=== PATIENT | female | born 1955 | race Caucasian/White ===

== ENCOUNTER → 2017-02-15 16:58 | Outpatient (CLI) | payer MEDICARE | END | disposition home or self-care (01) | LOC: D.LABREF 16:58 | DX: M25.562 Pain in left knee (principal); Z11.8 Encounter for screening for other infectious and parasitic diseases ==

== ENCOUNTER 2017-02-28 10:00 | Inpatient (IN) | payer MEDICARE ==
[~2017-02-28 10:00] MED LIST: CELEXA20 MG PO; COZAAR100 MG PO; CYCLOBENZAPRINE10 MG PO; GLUCOPHAGE500 MG PO; HYDROCODONE-APA1 TAB PO; KLONOPIN1 MG PO; PHENERGAN6.25 MG/5 PO; SYNTHROID75 MCG PO; ZOCOR20 MG PO
[2017-02-28 12:00] LABS: BASOPHILS 0.1 % (0-2); EOSINOPHILS 0.5 % (0-7); HEMATOCRIT 41.4 % (36.0-48.0); HEMOGLOBIN 14.2 g/dL (12-16); IMMATURE GRANULOCYTES 0.3 % (0-5); LYMPHOCYTES 27.2 % (15-50); MCH 29.4 pg (26.0-34.0); MCHC 34.3 g/dL (31.0-37.0); MCV 85.7 fL (80.0-100.0); MEAN PLATELET VOLUME 10.4 fL (7.4-10.4); MONOCYTES 5.1 % (2-11); NEUTROPHILS 66.8 % (40-80); PLATELET COUNT 270 10x3/uL (130-400); RBC 4.83 10x6/uL (4.00-5.40); WBC 9.2 10x3/uL (4.8-10.8)
[2017-02-28 12:09] LABS: INR 0.97 (0.85-1.17); PROTIME 12.7 SECONDS (11.6-15.0)
[2017-02-28 12:14] LABS: ANION GAP 14.4 mmol/L (8-16); CALCIUM 9.1 mg/dL (8.5-10.1); CARBON DIOXIDE 27.6 mmol/L (21.0-32.0); CREATININE - SERUM 0.9 mg/dL (0.6-1.3)
[2017-02-28 12:38] LABS: APPEARANCE CLOUDY (CLEAR); BILIRUBIN NEGATIVE (NEGATIVE); COLOR YELLOW (YELLOW); GLUCOSE 50 mg/dL (NEGATIVE); KETONE NEGATIVE (NEGATIVE); NITRITE NEGATIVE (NEGATIVE); PROTEIN NEGATIVE (NEGATIVE); SPECIFIC GRAVITY 1.025 (1.005-1.020); UROBILINOGEN NORMAL (NORMAL)
[2017-02-28 12:39] LABS: BACTERIA MANY /hpf (NONE SEEN); MUCUS <1+ /lpf (NONE SEEN); RED CELLS - URINE 0-5 /hpf (0-5); WHITE CELLS - URINE OCC /hpf (0-5)
[2017-02-28 12:40] LABS: AMORPHOUS SEDIMENT <1+ /lpf (NONE SEEN)
--- NOTE | 2017-03-05 00:40 | NUR ---
NORCAN 0.4MG IVP GIVEN TO IV SITE RT BREAST. REMAINS SEDATED.O2 ON 15 L/M PER OXYMIZER SAT INCREASED TO 97% HR =113.
[2017-03-05] MEDS ORDERED: BAYER CHEWABLE81 MG PO (10:48)
[2017-03-05 11:02] VITALS: BP 143/75; BMI 33.1
[2017-03-05 17:22] VITALS: BP 102/50
[2017-03-05 17:43] VITALS: BP 102/50; BMI 33.0
--- NOTE | 2017-03-05 17:50 | NUR ---
PT RECIEVED FROM RR VIA BED NO DISTRESS NOTED AROUSES TO VERBAL STIMULI. SURGICAL DRESSING IN PLACE TO LEFT KNEE REVISION.
--- NOTE | 2017-03-05 19:17 | NUR ---
PT IS SITTING UP IN BED FINISHING HER TURKEY SANDWICH, STATED NO PAIN AT THIS TIME BUT DID NEED TO USE BED CARREON, ASSISTED PT ON TO BED CARREON WITH NO DIFFICULTY. PT BED IN LOW POSITION, CALL LIGHT IN REACH NO SIGNS OF DISTRESS WILL CONTINUE WITH PLAN OF CARE
[2017-03-05 22:27] VITALS: BP 115/69
--- NOTE | 2017-03-05 23:30 | NUR ---
CALLED TO ROOM BY RT SAEED BAKER PT HARD TO AROUSE UNABLE TO GET PT AROUSED BY STERNAL RUB. O2 SAT=75% B/P=84/50. RESPIRATIONS LABORED. HOB UP PLACED ON 15L OXYMIZER. NOTIFIED CRYSTAL FROM ICU TO COME EVALUATE PATIENT.
--- NOTE | 2017-03-06 00:27 | NUR ---
CAME INTO ROOM TO GIVE PT ANTIBIOTIC, PT WAS SLEEPING DEEPLY, BP READ 88/52, O2 AT 54 UNABLE TO AROUSE PT, CALLED NADIR W/ RESP AND ASKED FOR ASSISTANCE. NADIR TRIED TO WAKE PT AND RICKY CALLED MISSY IN ICU. PT WAS STILL UNRESPONSIVE. DANNI, CHARGE NURSE ADMIN PIOTR
--- NOTE | 2017-03-06 00:45 | NUR ---
ABG'S DRAWN PER SAMUEL RT TECH. PT NOW AROUSES TO NAME ONLY ATTEMPTS MADE 4 TO SITE DRAKE MOSELEY UNABLE TO OBTAIN.
--- NOTE | 2017-03-06 00:55 | NUR ---
PT NOW STARTING TO OPEN EYES TO NAME ANSWERS WORKPLACE QUESTION (DYANA LOVE) KNOWS YEAR OF 1954.
--- NOTE | 2017-03-06 01:00 | NUR ---
B/P=102/43 PO=821 O2 SAT =100% ON 4L/M PER OXYMIZER. MORE AWAKE AND FOLLOWING COMMANDS.WILL TRY TO COUGH TO COMMAND.
--- NOTE | 2017-03-06 01:10 | NUR ---
B/P=100/55 ET=112. RR=24.UNABLE TO OBTAIN SECOND IV SITE.
[2017-03-06 04:00] VITALS: BP 129/58
[2017-03-06 06:14] LABS: MCH 28.9 pg (26.0-34.0); MCHC 32.4 g/dL (31.0-37.0); MCV 89.2 fL (80.0-100.0); MEAN PLATELET VOLUME 10.6 fL (7.4-10.4); RBC 4.15 10x6/uL (4.00-5.40); RDW 13.3 % (11.5-14.5); WBC 9.7 10x3/uL (4.8-10.8)
--- NOTE | 2017-03-06 07:45 | NUR ---
PT ASSESSMENT COMPLETE AROUSES TO VERBAL STIMULI BUT QUICKLY BACK TO SLEEP O2 AT 6 LPM OXYMIZER. LTLSC NOTED DRESSING CDI WILL MONITOR.
[2017-03-06 08:34] VITALS: BP 146/58
--- NOTE | 2017-03-06 11:30 | NUR ---
PT SITTING UP IN CHAIR AT BEDSIDE PER THERAPY STAFF. CALL LIGHT INREACH FAMILY IN ROOM
[2017-03-06 11:45] VITALS: BP 145/52
--- NOTE | 2017-03-06 16:00 | NUR ---
PT AMBULATED IN [place] WITH THERAPY. SPOUSE AT SIDE
[2017-03-06 16:07] VITALS: BP 125/52
--- NOTE | 2017-03-06 16:17 | NUR ---
Patient Name: TROY MOREIRA Admission Status: Elective Accout number: [id number] Admission Date: 03-05-2017 : 1955 Admission Diagnosis: Attending: EJ CLARK Current LOS: 1 Anticipated DC Date: Planned Disposition: Home Primary Insurance: MEDICARE A & B Discharge Planning Comments: CM met with patient and ( Manan ) to assess discharge planning needs. Patient states that she lives independently she has 6 stairs to enter in her home. She has a bedside commode & walker. Patient would like to do her PT in [place]. CM will set this up prior to discharge. CM will continue to follow and assist with discharge planning needs. PCP: [facility] () [phone] Enterprise Account Executive: Zaria Sommers * Is the patient Alert and Oriented? Yes 0 * How many steps to enter\exit or inside your home? 6 0 * PCP [facility] 0 * Pharmacy [facility] 0 * Preadmission Environment Home with Family 0 * ADLs Independent 0 * Equipment Bedside Commode Walker 0 * List name and contact numbers for known caregivers / representatives who currently or will assist patient after discharge: Manan () [phone] * Community resources currently utilized None 0 * Additional services required to return to the preadmission environment? Yes 0 * Can the patient safely return to the preadmission environment? Yes 0 * Has this patient been hospitalized within the prior 30 days at any hospital? No 0 Grand Total: 0
--- NOTE | 2017-03-06 18:30 | NUR ---
PT ON ROOM AIR AT THIS TIME TOLERATING WELL SAT 95%
--- NOTE | 2017-03-06 19:46 | NUR ---
PT IS SITTING IN BED WITH TELEVISION ON, CHECKED PT O2, PT IS STATING AT 91 ON RA. ASSISTED PT WITH BED CARREON, PT IS ABLE TO PULL SELF UPAND TURN FROM SIIDE TO SIDE TO ASSIST. BED IN LOW POSITION, CLL LIGHT IN REACH. NO SIGNS OF DISTRESS AT THIS TIME
[2017-03-06 20:00] VITALS: BP 129/53
[2017-03-07] VITALS: BP 112/40
--- NOTE | 2017-03-07 02:00 | NUR ---
PT IN BED WITH NO DISTRESS. RESPIRATIONS EVEN AND UNLABORED. SIDE RAILS X 2. BED IS LOW. CALL LIGHT IN REACH.
[2017-03-07 05:55] LABS: HEMATOCRIT 29.9 % (36.0-48.0); MCHC 33.4 g/dL (31.0-37.0); MEAN PLATELET VOLUME 10.7 fL (7.4-10.4); RBC 3.45 10x6/uL (4.00-5.40); RDW 13.2 % (11.5-14.5); WBC 11.6 10x3/uL (4.8-10.8)
[2017-03-07 06:09] LABS: MCV 86.7 fL (80.0-100.0)
--- NOTE | 2017-03-07 07:16 | NUR ---
AWAKE AND ALERT WITH RESPIRATIONS EVEN AND NON LABORED. COMPLAINTS OF PAIN AT THIS TIME. BED ALARM AND SCD'S ON. CALL LIGHT IN REACH. WILL CONTINUE WITH PLAN OF CARE. SRX2 WITH BED IN LOWEST POSITION AND WHEELS LOCKED.
--- NOTE | 2017-03-07 07:46 | NUR ---
PRN TORADOL ADMINISTERED AT THIS TIME FOR PAIN 03/13.
[2017-03-07 07:53] VITALS: BP 100/52
--- NOTE | 2017-03-07 08:49 | NUR ---
SCHEDULED MEDICATIONS ADMINISTERED AT THIS TIME WELL PRN NORCO. DENIES NEEDS AT THIS TIME. CALL LIGHT IN REACH, WILL CONTINUE WITH PLAN OF CARE.
--- NOTE | 2017-03-07 10:42 | NUR ---
LEFT SUBCLAVIAN CENTRAL LINE DRESSING CHANGED USING STERILE TECHNIQUE PER PROTOCOL.
[2017-03-07 12:00] VITALS: BP 118/91
--- NOTE | 2017-03-07 12:53 | NUR ---
PRN NORCO ADMINISTERED AT THIS TIME FOR PAIN. PT REMAINS UP IN CHAIR.
--- NOTE | 2017-03-07 14:47 | NUR ---
IN BED SLEEPING AT THIS TIME. CALL LIGHT IN REACH AND BED ALARM ON.
[2017-03-07 16:35] VITALS: BP 141/71
--- NOTE | 2017-03-07 18:56 | OP ---
PATIENT NAME: TROY MOREIRA MEDICAL RECORD: [id number] :57 LOCATION:[facility] ADMISSION DATE:03/05/17 SURGEON: EJ CLARK MD DATE OF OPERATION: 03/05/2017 PREOPERATIVE DIAGNOSIS: Painful left total knee. POSTOPERATIVE DIAGNOSIS: Painful left total knee. PROCEDURE: Revision of total knee, all components. SURGEON: Ej Clark MD ANESTHESIA: General. INTRAOPERATIVE COMPLICATIONS: None. SUMMARY OF PATHOLOGIC FINDINGS: The patient has a very tight knee in flexion, which could be part of the patient's reason for pain with slight varus deformity seen on preoperative radiographs. IMPLANTS USED: SoftArt triathlon total stabilizing system, size 4 femoral component with distal femoral augments of 10 and 10 medially and laterally. No offset with 150 mm press-fit stem size 14 in the femur, size 4 tibial baseplate with 4 offset at 12 o'clock with 100 mm stem, size 10. An 11-mm polyethylene insert. OPERATIVE SUMMARY IN DETAIL: After obtaining the appropriate preoperative orthopedic surgery consent as well as anesthetic consultation, evaluation and clearance, the patient was brought to the operating room and placed on the operating table in supine position. After general laryngeal mask was administered, tourniquet was placed about the proximal aspect of left lower extremity. Left lower extremity was then prepped and draped in a routine sterile fashion. Leg was elevated, exsanguinated, tourniquet inflated to 350 mmHg. Previously utilized incision was taken down again for paramedian arthrotomy. The previously placed total knee arthroplasty was exposed. Polyethylene was removed and then the femur was removed using flexible osteotomes. Good adherence was noted. Minimal bone loss was encountered. The tibia likewise was removed with a combination of flexible osteotomes as well as a saw. Having completed this, irrigation was then followed by reaming of the femur. Cleanup cuts on the distal femur were then followed by measured chamfer cuts. The trial corresponding to the above was put into place. Next, intramedullary reaming of the tibia was then followed by cleanup cut on the tibia and after the appropriate positioning of the tibial baseplate that is 4 degree offset set directly at 12 o'clock. The proximal tibia final preparations were finished followed by placement of the trial prosthesis along with the 11-mm trial spacer. The knee was stable and had a good range of motion in all planes. The trials were removed and irrigation was carried out while the final components were removed from the back table. Final components were cemented into place. All excess cement was removed. After the cement was allowed to harden, the knee was taken through range of motion, good patellar tracking was noted. Paramedian arthrotomy was closed with #2 Ethibond followed by #1 Vicryl, 2-0 Vicryl and skin satya. Sterile dressings were applied. The patient was awakened, taken to recovery room in stable condition. All final needle and sponge counts were correct. OPERATIVE REPORT [id number] TROY MOREIRA TRANSINT:[id number] Voice Confirmation ID: [id number] DOCUMENT ID: [id number] AMBER HEADLEY, EJ SMALLS at 1856 CC: [id number] DICTATION DATE: 03/05/17 1650 OUTREACH MANAGER: 03/05/17 2220 ADM IN [place] [id number] [place] [address]
[2017-03-07 20:00] VITALS: BP 161/72
[2017-03-08 04:00] VITALS: BP 158/77
[2017-03-08 07:03] LABS: HEMOGLOBIN 9.8 g/dL (12-16)
--- NOTE | 2017-03-08 07:12 | NUR ---
AWAKE AND ALERT. BED ALARM ON AND IN WORKING ORDER. SCD'S OFF PER PT. OXYGEN ON 2L VIA NC. OXYGEN TURNED OFF TO SEE RESTING OXYGEN SATURATION WHICH WAS 77%. PLACED ON 2L VIA NC AND SATURATIONS TANYA TO 94%.
[2017-03-08 08:14] VITALS: BP 113/95
--- NOTE | 2017-03-08 09:00 | NUR ---
SCHEDULED MEDICATIONS ADMINISTERED AT THIS TIME WELL PRN TORADOL FOR PAIN. TAKEN WITHOUT DIFFICULTY. DENIES NEEDS AT THIS TIME. WILL CONTINUE WITH PLAN OF CARE.
--- NOTE | 2017-03-08 10:00 | NUR ---
OXYGEN SATURATION AFTER AMBULATION WITH THERAPY 91% ON 2L VIA NC.
--- NOTE | 2017-03-08 11:58 | NUR ---
REMAINS UP IN CHAIR. PRN NORCO ADMINISTERED FOR PAIN 10/11. RIGO MAT ALARM ON AND IN USE. CALL LIGHT IN REACH, WILL CONTIUE WITH PLAN OF CARE.
[2017-03-08 12:45] VITALS: BP 128/70
[2017-03-08 16:25] VITALS: BP 134/64
[2017-03-08 20:00] VITALS: BP 154/81
[2017-03-09] VITALS: BP 130/74
[2017-03-09 04:00] VITALS: BP 162/67
--- NOTE | 2017-03-09 07:20 | NUR ---
AWAKE AND ALERT. OXYGEN ON 2L VIA NC. RESPIRATIONS EVEN AND NON LABORED. ASSISTED PT TO AND FROM BEDSIDE COMMODE. BED ALARM ON AND CALL LIGHT IN REACH. WILL CONTINUE WITH PLAN OF CARE.
[2017-03-09 08:07] VITALS: BP 174/71
--- NOTE | 2017-03-09 09:31 | NUR ---
PRN NORCO ADMINISTERED FOR PAIN AT THIS TIME. UP TO BEDSIDE COMMODE AND RECEIVING BATH BY MJ UGALDE.
[2017-03-09 11:55] VITALS: BP 156/68
--- NOTE | 2017-03-09 12:24 | NUR ---
OXYGEN SATURATION 94% ON ROOM AIR AT REST. ASSISTED PT UP TO BEDSIDE COMMODE AND OXYGEN SATURATION 92% WITH EXERTION ON ROOM AIR. NO COMPLAINTS OF SHORTNESS OF BREATH.
[2017-03-09 16:00] VITALS: BP 150/67
--- NOTE | 2017-03-09 19:15 | NUR ---
RECEIVED CARE FROM DAY NURSE. PT IN BED WITH CALL LIGHT AT SIDE. REPORTS NO NEEDS. LEFT TLSC SL. BSC AND WALKER AT SIDE.
[2017-03-09 20:00] VITALS: BP 104/63
--- NOTE | 2017-03-09 23:40 | NUR ---
ASSESSED, PT IS AWAKE AND EATING A SNACK. SHE REQUESTED MILK AND RECEIVED IT WANTED, THE CPM IS AT THE BEDSIDE. THE BED IS LOW, RAILS ARE UP AND THE CALL LIGHT IS AT HAND.
[2017-03-10] VITALS: BP 149/76
--- NOTE | 2017-03-10 01:19 | NUR ---
PT RESTING QUITLY WITH EYES CLOSED. RESP EVEN AND UNLABORED. CALL LIGHT AT SIDE. WILL CONTINUE TO MONITOR.
[2017-03-10 04:00] VITALS: BP 156/66
--- NOTE | 2017-03-10 07:05 | NUR ---
PT REC'D FROM [facility]. RESTING IN BED WATCHING TV. AAOX4. NO COMPLAINTS OF PAIN, BUT PT IS GRIMACING. STATES SHE IS "MORE SORE THAN ANYTHING." TOLD HER I WOULD GO AHEAD AND GIVE HER A PAIN PILL WITH HER MORNING MEDS. DRESSING TO L KNEE CDI. LUNG SOUNDS CLEAR AND EQUAL BILAT. REGULAR HEART RATE AND RHYTHM. BOWEL SOUNDS ACTIVE X4 QUADS. BED LOW, CALL LIGHT IN REACH, DENIES NEEDS. CPOC.
[2017-03-10 08:07] VITALS: BP 168/72
[2017-03-10] MEDS ORDERED: ELIQUIS2.5 MG PO ×2 (08:48→10:10)
[2017-03-10] MEDS ORDERED: HYDROCODONE-APA1 TAB PO (08:49)
--- NOTE | 2017-03-10 08:55 | NUR ---
MORNING MEDS PASSED AT THIS TIME. PRN PAIN MEDICATION ADMINISTERED PER PT COMPLAINTS OF 4/10 L KNEE PAIN. BED LOW, CALL LIGHT IN REACH, DENIES NEEDS. CPOC.
[2017-03-10] MEDS ORDERED: LEVAQUIN750 MG PO (10:08)
--- NOTE | 2017-03-10 10:12 | NUR ---
ELIQUIS CALLED TO [facility]. SPOKE WITH AMY/PHARMACIST. LEVAQUIN CALLED TO [facility] [place]. SPOKE WITH GALILEA/PHARMACIST. NOTIFIED PT'S SPOUSE TO [facility] LEVAQUIN AT [place] AND ELIQUIS AT [facility] WITH ELIQUIS FREE TRIAL CARD PROVIDED.
--- NOTE | 2017-03-10 10:50 | NUR ---
PATIENT FOR DISCHARGE TO HOME TODAY. SHE DENIES ANY ADDITIONAL NEEDS. SHE HAS BEEN SEARCHING FOR A SHOWER CHAIR. KNOWS MEDICARE WILL NOT PAY FOR SHOWER CHAIR. SHE WILL F/U WITH [facility]. PATIENT HAS AN ORDER FOR OUTPATIENT PHYSICAL THERAPY. CM ADVISED HER OF PROVIDERS FOR OUTPATIENT PHYSICAL THERAPY IN [place] PER THE INTERNET: [place] [facility], [facility] AND [facility]. THE PATIENT SELECTED [facility]. CM TELEPHONED AND PROVIDER IS NOT AVAILABLE ON THE WEEKEND. ADVISED WEEKDAY CM MUST FOLLOW-UP ON SUNDAY TO ARRANGE. PATIENT UNDERSTANDS.
--- NOTE | 2017-03-10 13:06 | NUR ---
PATIENT DISCHARGING AT THIS TIME. TAKEN DOWN TO PRIVATE VEHICLE WITH PERSONAL BELONGINGS VIA WC BY PHILIP KRUSE.
--- NOTE | 2017-03-10 13:20 | NUR ---
DISCHARGE INSTRUCTIONS DISCUSSED AT THIS TIME. NO QUESTIONS OR CONCERNS VOICED. L SC DC'D WITH TIP INTACT. APPROXIMATLY 15CM. PRESSURE APPLIED FOR 5 MINUTES AND THEN DRESSING APPLIED. DRESSING TO L KNEE CHANGED PER ORDERS. ESCORTED OUT VIA WC.
--- NOTE | 2017-03-12 09:37 | NUR ---
referral sent to [facility] [place] for the patient to do outpatient PT. They will call the patient with an appointment time for her therapy.
--- NOTE | 2017-03-19 11:43 | CN ---
PATIENT NAME:TROY MOREIRA MEDICAL RECORD: [id number] : 57 LOCATION:[facility] ADMIT DATE: 03/05/17 ACCOUNT: [id number] CONSULTING PHYSICIAN: KENYA KHAN MD REFERRING PHYSICIAN: EJ CLARK MD DATE OF CONSULTATION: CONSULT REQUESTING PHYSICIAN: Ej Clark MD REASON FOR CONSULTATION: Hypoxia, pneumonia. HISTORY OF PRESENT ILLNESS: Ms. Moreira is a 62-year-old female who underwent left knee revision surgery. Since then, the patient required oxygen. Chest radiograph was done, which showed infiltrate right upper lobe. She has a cough without much sputum production. She had a fever 2 days ago. REVIEW OF SYSTEMS: Mainly in the history of present illness. PAST MEDICAL HISTORY: 1. Obstructive sleep apnea. The patient is not using a CPAP machine. 2. Diabetes mellitus. 3. History of hepatitis. 4. Hypothyroidism. 5. Anxiety, depression. 6. Peptic ulcer disease. PAST SURGICAL HISTORY: 1. She has Whit fundoplication. 2. She has repeat left knee surgery. 3. She has uvulopharyngoplasty. 4. Nose surgery. ALLERGIES: SHE IS ALLERGIC TO ROCEPHIN, HYDROCHLOROTHIAZIDE, METOCLOPRAMIDE, PREDNISONE, TRIAMCINOLONE. PERSONAL AND SOCIAL HISTORY: The patient is a nonsmoker, nondrinker. FAMILY HISTORY: Noncontributory. PHYSICAL EXAMINATION: GENERAL: The patient is lying comfortably. She is not in acute distress. VITAL SIGNS: The blood pressure is 128/70, pulse is 74, respirations 17, temperature 97.8, SPO2 is 95% on 2 liter nasal cannula. HEENT: Conjunctivae pink, sclerae nonicteric. NECK: Supple. No JVD. CHEST: There are crackles at the right apex. No wheezing. HEART: Rhythm regular, normal sound, no murmur. ABDOMEN: Soft. Bowel sounds present. No hepatosplenomegaly. RECTAL: Deferred. EXTREMITIES: No cyanosis, no clubbing, no pedal edema. SKIN: Warm, normal turgor. CENTRAL NERVOUS SYSTEM: The patient is awake and alert. There are no obvious cranial nerve abnormality. The gait was not tested. CHEST RADIOGRAPH: There is infiltrate in right upper lobe. CONSULT REPORT [id number] LILLIE,TROY OTHER LABORATORY DATA: CBC; the WBC is 11.6, hemoglobin 10, hematocrit 29.9, the platelet count is 276. Chemistries; sodium 140. ABG; the pH is 7.22, pCO2 is 69.1, pO2 is 88, bicarbonate is 28.7. IMPRESSION: 1. Acute hypoxic respiratory failure. 2. Pneumonia, right upper lobe, most likely hospital-acquired pneumonia, possible aspiration. 3. Obstructive sleep apnea. The patient is not using CPAP, but she has uvulopharyngoplasty. 4. Status post revision of left knee replacement. 5. Leukocytosis. RECOMMENDATION: 1. Start on Levaquin and meropenem IV. 2. Mucinex DM. 3. BiPAP if required. 4. Supplemental oxygen is required. 5. Follow up labs and chest radiograph. Dr. Clark, thank you for involving me in the care of Ms. Moreira. TRANSINT:[id number] Voice Confirmation ID: [id number] DOCUMENT ID: [id number] KENYA KHAN MD at 1143 CC: EJ CLARK MD [id number] DICTATION DATE: 03/08/17 1408 ALTERATION HAND: 03/08/171921 DIS IN 03/10/17 [facility] [address] [place] [address]
== END 2017-03-10 13:23 | disposition home or self-care (01) | DRG 466 ==
LOC: D.SDCHOLD 10:00 → D.MS 03-05 05:14 → D.SDCHOLD 03-05 05:14 → D.MS 03-05 17:14
PROVIDERS: ADMIT Orthopaedic Surgery
PROC: 0SRD0J9 Replacement of Left Knee Joint with Synthetic Substitute, Cemented, Open Approach (ICD-10-PCS; 2017-03-05)
PROC: 0SPD0JZ Removal of Synthetic Substitute from Left Knee Joint, Open Approach (ICD-10-PCS; principal; 2017-03-05 11:30)
PROC: 05H633Z Insertion of Infusion Device into Left Subclavian Vein, Percutaneous Approach (ICD-10-PCS; 2017-03-06)
DX: T84.84XA Pain due to internal orthopedic prosthetic devices, implants and grafts, initial encounter (principal); J96.02 Acute respiratory failure with hypercapnia; D62 Acute posthemorrhagic anemia; E11.9 Type 2 diabetes mellitus without complications; K75.9 Inflammatory liver disease, unspecified; E03.9 Hypothyroidism, unspecified; I10 Essential (primary) hypertension; E66.9 Obesity, unspecified; Z68.33 Body mass index [BMI] 33.0-33.9, adult